=== PATIENT | female | born 1980 | race African-American/Black ===

== ENCOUNTER 2022-08-25 11:51 | Inpatient (IN) | payer OTHER ==
[2022-08-25] MEDS ORDERED: Ketorolac Tromethamine 30 MG/ML VIAL ONE (12:04)
[2022-08-25 12:24] LABS: BHCG - Serum Negative (NEGATIVE); Pregs Control Background? CLEAR/WHITE (CLR/WHITE); Pregs Control Bar Appear? YES (CONTROL BAR)
[2022-08-25 12:30] LABS: #Monocytes 0.4 10x3/uL (0.0-1.1); #Neutrophils 1.7 10x3/uL (1.5-8.4); %Basophils 0.6 % (0.0-2.0); %Eosinophils 0.6 % (0.0-6.0); %Lymphocytes 40.1 % (18.0-47.0); %Monocytes 10.6 % (0.0-10.0); %Neutrophils 48.1 % (40.0-75.0); Hemoglobin 11.3 g/dL (12.0-15.5); Mean Corpuscular HGB CONC 35.6 g/dL (32.0-36.0); Mean Corpuscular Hemoglobin 29.5 pg (27.0-33.0); Mean Corpuscular Volume 82.8 fl (81.6-98.3); Mean Platelet Volume 10.9 fl (7.4-10.4); Platelet Count 303 10x3/uL (150-450); RBC Distribution Width 16.4 % (11.5-14.5); Red Blood Cell (RBC) Count 3.83 10x6/uL (3.90-5.03); White Blood Cell (WBC) Count 3.6 10x3/uL (3.5-10.5)
[2022-08-25 12:31] LABS: ALT (SGPT) 12 U/L (8-55); AST (SGOT) 50 U/L (5-34); Albumin 3.5 g/dL (3.5-5.0); Alkaline Phosphatase 161 U/L (40-110); Anion Gap 14 mmol/L (10-20); BUN (Urea Nitrogen) 8 mg/dL (7.0-18.7); Bilirubin, Total 0.6 mg/dL (0.2-1.2); Calc. Creatinine Clearance 0 mL/min (70-130); Calcium 8.4 mg/dL (7.8-10.44); Carbon Dioxide 20 mmol/L (22-29); Chloride 106 mmol/L (98-107); Estimated GFR 116; Globulin 3.7 g/dL (2.4-3.5); Glucose 106 mg/dL (70-105); Potassium 3.6 mmol/L (3.5-5.1); Protein, Total 7.2 g/dL (6.0-8.3); Sodium 136 mmol/L (136-145)
[2022-08-25 12:32] LABS: CRP (Inflammatory) 3.29 mg/dL (= or < 0.5)
[2022-08-25 12:59] LABS: Bilirubin Neg (Negative); Blood, Urine 50 (Negative); Clarity Clear (Clear); Glucose, Urine (Dipstick) Normal (Negative); Ketone, Urine Negative (Negative); Leukocyte 100 (Negative); Nitrite Positive (Negative); Protein, Urine (Dipstick) 15 mg/dl (Neg-Trace); Specific Gravity, Urine 1.015 (1.005-1.030)
[2022-08-25 13:06] LABS: Bacteria/HPF 3+ HPF (None Seen); RBC/HPF 0-3 HPF (0-3)
[2022-08-25] MEDS ORDERED: Diazepam 5 MG TAB ONE (13:22)
[2022-08-25 13:31] LABS: SARS-CoV-2 NAA Rapid Test Not Detected (NotDetected)
[2022-08-25] MEDS ORDERED: Ondansetron PF 4 MG/2 ML Vial IVP PRN (13:56)
[2022-08-25] MEDS ORDERED: Ondansetron ODT 4 MG TAB PO PRN (13:56)
[2022-08-25] MEDS ORDERED: cefTRIAXone\\ROCEPHIN 2 GM VIAL ONE (14:22)
[2022-08-25] MEDS ORDERED: Enoxaparin Sodium 80 MG/0.8 ML SYRINGE ONE (14:22)
[2022-08-25 16:47] VITALS: BMI 26.4
[2022-08-25] MEDS: Diazepam 5 MG TAB PO PRN (17:33)
[2022-08-25] MEDS: Sodium Chloride 0.9% 1,000 ML IV SCH (17:33)
[2022-08-25] MEDS: Nicotine 14 MG PATCH TD SCH (17:39)
[2022-08-25] MEDS: Guaifenesin DM 100-10/5 ML UDCUP PO PRN (17:50)
[2022-08-25] MEDS: Enoxaparin Sodium 80 MG/0.8 ML SYRINGE SC SCH (20:38)
[2022-08-26] MEDS: Sodium Chloride 0.9% 1,000 ML IV SCH (04:41)
[2022-08-26 04:59] LABS: Anion Gap 10 mmol/L (10-20); BUN (Urea Nitrogen) 7 mg/dL (7.0-18.7); Calc. Creatinine Clearance 159 mL/min (70-130); Calcium 7.8 mg/dL (7.8-10.44); Carbon Dioxide 22 mmol/L (22-29); Chloride 107 mmol/L (98-107); Estimated GFR 120; Glucose 96 mg/dL (70-105); Potassium 3.3 mmol/L (3.5-5.1); Sodium 136 mmol/L (136-145)
[2022-08-26 05:04] LABS: #Monocytes 0.3 10x3/uL (0.0-1.1); #Neutrophils 1.1 10x3/uL (1.5-8.4); %Basophils 0.4 % (0.0-2.0); %Eosinophils 1.4 % (0.0-6.0); %Lymphocytes 48.2 % (18.0-47.0); %Monocytes 10.6 % (0.0-10.0); %Neutrophils 39.4 % (40.0-75.0); Hemoglobin 9.6 g/dL (12.0-15.5); Mean Corpuscular Hemoglobin 28.7 pg (27.0-33.0); Mean Corpuscular Volume 84.4 fl (81.6-98.3); Mean Platelet Volume 11.2 fl (7.4-10.4); Platelet Count 224 10x3/uL (150-450); RBC Distribution Width 16.5 % (11.5-14.5); Red Blood Cell (RBC) Count 3.34 10x6/uL (3.90-5.03); White Blood Cell (WBC) Count 2.8 10x3/uL (3.5-10.5)
[2022-08-26] MEDS ORDERED: Enoxaparin Sodium 80 MG/0.8 ML SYRINGE ONE (09:41)
[2022-08-26] MEDS: Guaifenesin DM 100-10/5 ML UDCUP PO PRN ×2 (09:43→16:41)
[2022-08-26] MEDS: Diazepam 5 MG TAB PO PRN ×2 (09:43→16:41)
[2022-08-26] MEDS: Enoxaparin Sodium 80 MG/0.8 ML SYRINGE SC SCH (09:43)
[2022-08-26] MEDS ORDERED: Potassium Chloride 20 MEQ TAB PO SCH (10:15)
[2022-08-26] MEDS ORDERED: Electrolyte Replacement Protocol 1 EACH FS SCH (10:15)
[2022-08-26] MEDS ORDERED: cefTRIAXone\\ROCEPHIN 1 GM in Sodium Chloride 0.9% 100 ML IVPB SCH (14:00)
[2022-08-26] MEDS: Nicotine 14 MG PATCH TD SCH (16:42)
[2022-08-26] MEDS: Apixaban 5 MG TAB PO SCH (20:31)
[2022-08-26] MEDS ORDERED: Famotidine/PF 20 mg/2ml Vial SLOW IVP SCH (21:15)
[2022-08-26] MEDS ORDERED: Ketorolac Tromethamine 30 MG/ML VIAL IVP SCH (21:15)
[2022-08-27 05:33] LABS: Hemoglobin 9.8 g/dL (12.0-15.5); Mean Corpuscular HGB CONC 34.4 g/dL (32.0-36.0); Mean Corpuscular Hemoglobin 29.3 pg (27.0-33.0); Mean Corpuscular Volume 85.1 fl (81.6-98.3); Mean Platelet Volume 10.6 fl (7.4-10.4); Platelet Count 216 10x3/uL (150-450); RBC Distribution Width 16.7 % (11.5-14.5); Red Blood Cell (RBC) Count 3.35 10x6/uL (3.90-5.03); White Blood Cell (WBC) Count 2.3 10x3/uL (3.5-10.5)
[2022-08-27 05:45] LABS: PTT 32.3 sec (22.0-33.0); Prothrombin Time 10.6 sec (9.5-12.1)
[2022-08-27 05:49] LABS: Anion Gap 9 mmol/L (10-20); BUN (Urea Nitrogen) 5 mg/dL (7.0-18.7); Calc. Creatinine Clearance 153 mL/min (70-130); Calcium 8.5 mg/dL (7.8-10.44); Carbon Dioxide 25 mmol/L (22-29); Chloride 109 mmol/L (98-107); Estimated GFR 119; Glucose 96 mg/dL (70-105); Magnesium 1.8 mg/dL (1.6-2.6); Potassium 3.7 mmol/L (3.5-5.1); Sodium 139 mmol/L (136-145)
[2022-08-27 06:31] LABS: MDiff Complete? YES
[2022-08-27 06:40] LABS: Band 4 % (5-11); Lymphocytes 61 % (21-51); Monocytes 13 % (0-10); Neutrophil 17 % (42-75); Reactive Lymphocytes 5 % (0-10)
[2022-08-27 06:41] LABS: Platelet Morphology Comment Appears Adequate; RBC Morphology Normal
[2022-08-27] MEDS ORDERED: Magnesium 2 GM/50 ML(in water) 2 GM in Premix Bag 1 BAG IVPB SCH (08:00)
[2022-08-27] MEDS: Apixaban 5 MG TAB PO SCH (09:15)
[2022-08-27] MEDS: Diazepam 5 MG TAB PO PRN (09:32)
[2022-08-27 11:10] VITALS: BP 102/64; TEMP 97.8
[2022-08-28] MEDS ORDERED: FLU VACC QS2022-23(6MOS UP)/PF 60 MCG/0.5 ML SYRINGE IM ONE (17:30)
[2022-09-02] MEDS ORDERED: Apixaban 5 MG TAB PO SCH (21:00)
== END 2022-08-27 12:30 | disposition home health service (06) | DRG 194 ==
LOC: CSHERS 11:51 → CSHTELE 16:24
PROVIDERS: ADMIT Internal Medicine; ATTEND Family Medicine
DX: J10.1 Influenza due to other identified influenza virus with other respiratory manifestations (principal); I82.413 Acute embolism and thrombosis of femoral vein, bilateral; I82.432 Acute embolism and thrombosis of left popliteal vein; N30.00 Acute cystitis without hematuria; Z20.822 Contact with and (suspected) exposure to COVID-19; G83.9 Paralytic syndrome, unspecified; F17.210 Nicotine dependence, cigarettes, uncomplicated; Z88.2 Allergy status to sulfonamides; Z71.6 Tobacco abuse counseling
CPT/HCPCS: 36415; 51701; 71045; 80048; 80053; 81003; 81015; 82550; 83605; 83735; 84703; 85025; 85610; 85730; 86140; 87040; 93005; 94760; 96361; 96365; 96372; 96375; 97139; J0696; J1650; J1885; J2405; J3475; J3490; J7050; Q0162; S0028

== ENCOUNTER 2023-10-08 21:42 | Emergency (ER) | payer OTHER ==
[~2023-10-08 21:42] MED LIST: Iopamidol 300 61% 100 ML VIAL FS ONE
[2023-10-08] MEDS ORDERED: Acetaminophen 500 MG TAB ONE (23:10)
[2023-10-08] MEDS ORDERED: Ondansetron PF 4 MG/2 ML Vial ONE (23:10)
[2023-10-08 23:20] LABS: Hematocrit 34.8 % (34.9-44.5); Hemoglobin 12.1 g/dL (12.0-15.5); Mean Corpuscular HGB CONC 34.8 g/dL (32.0-36.0); Mean Corpuscular Hemoglobin 29.8 pg (27.0-33.0); Mean Corpuscular Volume 85.7 fl (81.6-98.3); Mean Platelet Volume 11.2 fl (7.4-10.4); Platelet Count 281 10x3/uL (150-450); RBC Distribution Width 15.9 % (11.5-14.5); Red Blood Cell (RBC) Count 4.06 10x6/uL (3.90-5.03); White Blood Cell (WBC) Count 6.9 10x3/uL (3.5-10.5)
[2023-10-08 23:21] LABS: #Eosinphils 0.1 10x3/uL (0.0-0.5); #Monocytes 1.1 10x3/uL (0.0-1.1); #Neutrophils 4.1 10x3/uL (1.5-8.4); %Basophils 0.3 % (0.0-2.0); %Lymphocytes 24.6 % (18.0-47.0); %Monocytes 15.5 % (0.0-10.0); %Neutrophils 58.2 % (40.0-75.0)
[2023-10-08 23:23] LABS: ALT (SGPT) 8 U/L (8-55); AST (SGOT) 14 U/L (5-34); Alkaline Phosphatase 74 U/L (40-110); Anion Gap 17 mmol/L (10-20); BUN (Urea Nitrogen) 5 mg/dL (7.0-18.7); Bilirubin, Total 1.3 mg/dL (0.2-1.2); Calc. Creatinine Clearance 0 mL/min (70-130); Calcium 8.9 mg/dL (7.8-10.44); Carbon Dioxide 23 mmol/L (22-29); Chloride 98 mmol/L (98-107); Estimated GFR 114; Globulin 3.9 g/dL (2.4-3.5); Glucose 145 mg/dL (70-105); Potassium 3.5 mmol/L (3.5-5.1); Protein, Total 7.9 g/dL (6.0-8.3); Sodium 134 mmol/L (136-145)
[2023-10-08 23:28] LABS: BHCG - Serum Negative (NEGATIVE); Pregs Control Background? CLEAR/WHITE (CLR/WHITE); Pregs Control Bar Appear? YES (CONTROL BAR)
[2023-10-08 23:29] LABS: Troponin I Less than 0.010 ng/mL (< 0.028)
[2023-10-08 23:38] LABS: SARS-CoV-2 NAA Rapid Test Not Detected (NotDetected)
[2023-10-08 23:46] LABS: Bilirubin Neg (Negative); Blood, Urine 150 (Negative); Clarity Slightly Cloudy (Clear); Glucose, Urine (Dipstick) Normal (Negative); Ketone, Urine 5 mg/dL (Negative); Leukocyte 500 (Negative); Nitrite Positive (Negative); Protein, Urine (Dipstick) 30 mg/dl (Neg-Trace); Specific Gravity, Urine 1.015 (1.005-1.030)
[2023-10-08] MEDS ORDERED: Cefepime 2 GM VIAL ONE (23:55)
[2023-10-08] MEDS ORDERED: Ketorolac Tromethamine 30 MG (1 mL) VIAL ONE (23:55)
[2023-10-08 23:56] LABS: Bacteria/HPF 2+ HPF (None Seen); CAUTI Indications for Culture Dysuria,urgency,freq; Squamous Epithelial 0-3 HPF (0-3); Urine Culture Reflex Yes Yes; WBC/HPF 21-50 HPF (0-3)
[2023-10-09 01:45] LABS: Lactic Acid 0.9 mmol/L (0.5-2.2)
== END 2023-10-09 02:49 | disposition short-term general hospital (02) ==
LOC: CSHERS 21:42
DX: N12 Tubulo-interstitial nephritis, not specified as acute or chronic (principal); K76.9 Liver disease, unspecified; R74.02 Elevation of levels of lactic acid dehydrogenase [LDH]; F17.210 Nicotine dependence, cigarettes, uncomplicated; R60.0 Localized edema
CPT/HCPCS: 0241U; 51701; 74177; 80053; 81001; 83605; 84484; 84703; 85025; 87040; 87077; 87081; 87086; 87186; 87430; 93005; 93970; 96361; 96365; 96375; 99285; 36415; J0692; J1885; J2405; Q9967